=== PATIENT | male | born 1950 | race Caucasian/White ===

== ENCOUNTER 2016-12-22 12:26 | Emergency (ER) | payer OTHER ==
[2016-12-22 12:40] VITALS: RESP 24; TEMP 98.2
[2016-12-22 13:27] VITALS: BP 130/81; PULSE 81; O2SAT 92
== END 2016-12-22 13:13 | disposition home or self-care (01) ==
LOC: ED 12:26
DX: J20.9 Acute bronchitis, unspecified (principal)
CPT/HCPCS: 99282